=== PATIENT | male | born 1995 | race Caucasian/White ===

== ENCOUNTER 2016-08-29 16:28 | Emergency (ER) | payer BC ==
[2016-08-29 16:44] VITALS: RESP 18
[2016-08-29] MEDS ORDERED: SODIUM CHLORIDE 0.9% 1,000 ML IV STA (16:56)
[2016-08-29] MEDS ORDERED: ESOMEPRAZOLE 20 MG in SODIUM CHLORIDE 0.9% 50 ML IVPB STA (16:56)
[2016-08-29 17:35] VITALS: BP 146/83; PULSE 52; TEMP 99.3
[2016-08-29 17:43] LABS: Basophils % (A) 0 %; CH 31.4; CHCM 37.6; Eosinophils # (A) 0.3 k/uL (0-0.7); Eosinophils % (A) 5 %; HCT 36.5 % (39.0-53.0); HGB 13.5 gm/dL (13.0-17.5); Hyperchromasia Slight; Luc # (Auto) 0.14; Luc % (Auto) 2; Lymphocytes # (A) 1.7 k/uL (1.0-4.8); Lymphocytes % (A) 27 %; MCH 31.1 pg (25.0-35.0); MCHC 37.1 g/dL (31.0-37.0); MCV 83.9 fL (80.0-100.0); Mean Platelet Volume 7.5; Monocytes # (A) 0.3 k/uL (0-1.0); Monocytes % (A) 5 %; Neutrophils # (A) 3.9 k/uL (1.3-7.7); Neutrophils % (A) 61 %; RBC 4.36 m/uL (4.30-5.90); RDW 13.2 % (11.5-15.5); WBC 6.5 k/uL (4.0-11.0); WBC (Perox) 6.28
[2016-08-29 17:53] LABS: INR 1.1 (<1.2); Partial Thromboplastin Time 27.2 sec (22.0-30.0); Prothrombin Time 10.7 sec (9.0-12.0)
--- NOTE | 2016-08-29 18:00 | ED ---
GI Bleed HPI - General Chief complaint: GI Bleed Stated complaint: Rectal Bleeding Time Seen by Provider: 08/29/16 16:49 Source: patient, RN notes reviewed Mode of arrival: ambulatory Limitations: no limitations - History of Present Illness Initial comments: 21-year-old male presents emergency Department chief complaint of rectal bleeding. Patient states that he had a bowel movement today and which he had dark maroon to black stool and states that he also had some bright red blood. Patient states she has no rectal pain denies abdominal pain. Patient did state that he did consume large amount of alcohol this weekend Patient states she has no history of GERD or gastritis. He has no GI history. Patient states that he has no hematuria or dysuria. Denies taking ibuprofen on a regular basis. He states he takes occasionally. Patient states she's had no history of hemorrhoids. Patient offers no other complaints. Denies fever, chills, fatigue. - Related Data Home Medications Medication Instructions Recorded Confirmed Cetirizine HCl [Zyrtec] 10 mg PO DAILY PRN 08/29/16 08/29/16 diphenhydrAMINE HCL [Benadryl] 25 mg PO HS PRN 08/29/16 08/29/16 Previous Rx's Medication Instructions Recorded Omeprazole [PriLOSEC] 20 mg PO AC-BRKFST #14 cap 08/29/16 Allergies Allergy/AdvReac Type Severity Reaction Status Date / Time Penicillins Allergy Unknown Verified 08/29/16 16:49 Childhood Review of Systems ROS Statement: Those systems with pertinent positive or pertinent negative responses have been documented in the HPI. ROS Other: All systems not noted in ROS Statement are negative. Past Medical History Past Medical History: No Reported History History of Any Multi-Drug Resistant Organisms: None Reported Past Surgical History: Adenoidectomy, Ear Surgery, Tonsillectomy Past Psychological History: No Psychological Hx Reported Smoking Status: Light tobacco smoker Past Alcohol Use History: Occasional Past Drug Use History: None Reported General Exam Limitations: no limitations General appearance: alert, in no apparent distress Neck exam: Present: normal inspection, full ROM. Absent: tenderness, meningismus, lymphadenopathy Respiratory exam: Present: normal lung sounds bilaterally. Absent: respiratory distress, wheezes, rales, rhonchi, stridor Cardiovascular Exam: Present: regular rate, normal rhythm, normal heart sounds. Absent: systolic murmur, diastolic murmur, rubs, gallop, clicks GI/Abdominal exam: Present: soft, normal bowel sounds. Absent: distended, tenderness, guarding, rebound, rigid Rectal exam: Present: normal inspection, normal rectal tone, heme (+) stool, bloody stool. Absent: fecal impaction, hemorrhoids, mass, tenderness Back exam: Absent: CVA tenderness (R), CVA tenderness (L) Skin exam: Present: warm, dry, intact, normal color. Absent: rash Course Vital Signs 08/29/16 08/29/16 16:41 17:34 Temperature 98.7 F 99.3 F Pulse Rate 51 L 52 L Respiratory 18 18 Rate Blood Pressure 164/87 146/83 O2 Sat by Pulse 99 99 Oximetry Medical Decision Making - Medical Decision Making 21-year-old male present emergency Department chief complaint of bleeding rectally. Patient was likely has an internal hemorrhoid. Patient's stools more bright red been black. This less likely to be upper GI bleed the patient be started on some antacids. Patient will follow-up GI for possible colonoscopy if symptoms do not improve return parameters were discussed. - Lab Data Result diagrams: 08/29/16 17:34 Lab Results 08/29/16 08/29/16 08/29/16 Range/Units 17:34 17:34 17:34 WBC 6.5 (4.0-11.0) k/uL RBC 4.36 (4.30-5.90) m/uL Hgb 13.5 (13.0-17.5) gm/dL Hct 36.5 L (39.0-53.0) % MCV 83.9 (80.0-100.0) fL MCH 31.1 (25.0-35.0) pg MCHC 37.1 H (31.0-37.0) g/dL RDW 13.2 (11.5-15.5) % Plt Count 212 (150-450) k/uL Neutrophils % 61 % Lymphocytes % 27 % Monocytes % 5 % Eosinophils % 5 % Basophils % 0 % Neutrophils # 3.9 (1.3-7.7) k/uL Lymphocytes # 1.7 (1.0-4.8) k/uL Monocytes # 0.3 (0-1.0) k/uL Eosinophils # 0.3 (0-0.7) k/uL Basophils # 0.0 (0-0.2) k/uL Hyperchromasia Slight PT 10.7 (9.0-12.0) sec INR 1.1 (<1.2) APTT 27.2 (22.0-30.0) sec Stool Occult Blood Positive (Negative) Disposition Clinical Impression: Rectal bleeding Disposition: HOME SELF-CARE Condition: Stable Instructions: Gastrointestinal Bleeding (ED) Additional Instructions: Please return to the Emergency Department if symptoms worsen or any other concerns. Prescriptions: Omeprazole [PriLOSEC] 20 mg PO AC-BRKFST #14 cap Referrals: Raudel Phillip MD [Primary Care Provider] - 1-2 days Time of Disposition: 17:59
[2016-08-29 18:02] LABS: ALT 34 U/L (21-72); AST 41 U/L (17-59); Alkaline Phosphatase 104 U/L (38-126); Anion Gap 10 mmol/L; Blood Urea Nitrogen 17 mg/dL (9-20); Calcium 9.3 mg/dL (8.4-10.2); Carbon Dioxide 22 mmol/L (22-30); Chloride 108 mmol/L (98-107); Glucose 98 mg/dL (74-99); Magnesium 1.7 mg/dL (1.6-2.3); Non-African American GFR(MDRD) >60 (>60 ml/min/1.73 sqM); Sodium 140 mmol/L (137-145); Total Bilirubin 0.9 mg/dL (0.2-1.3); Total Protein 6.9 g/dL (6.3-8.2)
== END 2016-08-29 18:14 | disposition home or self-care (01) ==
LOC: EC 16:28
DX: K62.5 Hemorrhage of anus and rectum (principal); Z88.0 Allergy status to penicillin; F17.200 Nicotine dependence, unspecified, uncomplicated
CPT/HCPCS: 36415; 80053; 82272; 83735; 85025; 85610; 85730; 96365; 99284

== ENCOUNTER 2018-03-07 12:42 | Observation (INO) | payer OTHER ==
--- NOTE | 2018-03-07 12:22 | US ---
EXAMINATION TYPE: US abdomen APPY DATE OF EXAM: 03/07/2018 COMPARISON: NONE CLINICAL HISTORY: 22-year-old female R10.31 Rt lower quadrant pain. RLQ Pain, patient states having s light fever yesterday TECHNIQUE: Multiple sonographic images of the right lower quadrant with graded compression. FINDINGS: APPENDIX Is structure which may represent the appendix is seen: AP Diameter (normal < 6mm): 6.7 mm Measured outer wall to outer wall. Is the appendix seen in its entirety from the proximal cecum to distal end: No. Noncompressible nonpe ristalsing tubular structure seen in the RLQ. Is this structure compressible: no Does this structure appear hypervascular: no Is an appendicolith present: no Is there inflammatory changes or free fluid present: Small amount of free fluid visualized just james cent IMPRESSION: Findings are somewhat suspicious but remain equivocal by ultrasound. A structure which may represent the appendix is seen and has some adjacent free fluid but shows no inflammatory hyperemia and is only borderline in thickness. The structure could also not be seen in its entirety. The presence of some adjacent free fluid and noncompressibility are suspicious features. Further clinical correlation will be needed.
[2018-03-07] MEDS ORDERED: SODIUM CHLORIDE 0.9% 1,000 ML IV STA (12:54)
--- NOTE | 2018-03-07 13:12 | ED ---
Abdominal Pain HPI - General Chief Complaint: Abdominal Pain Stated Complaint: US sent-appendicitis Source: patient Mode of arrival: ambulatory Limitations: no limitations - History of Present Illness Initial Comments: 22-year-old male with no past medical history presents today as sent by primary care provider for rule out of appendicitis. Patient states that yesterday he began experiencing right lower quadrant abdominal pain as well as some mild diarrhea. He states this has since subsided however the right lower quadrant pain remained. Patient denies any vomiting, hematochezia, melena, testicular pain, testicular swelling, groin pain, abdominal injury. He did state he had a low-grade fever yesterday evening around 100 Fahrenheit however this was resolved with ibuprofen. Patient states he presented to his primary care provider for evaluation where an ultrasound was ordered, results were inconclusive and patient was sent for further evaluation at the emergency department. Patient's labs that were drawn as primary care provider are pending. Patient states that the pain does not radiate however increases with deep breath and is sore with ambulation. Patient states 4/10 sharp. Remainder of ROS negative, patient denies any recent shortness of breath, chest pain, back pain, nausea or vomiting, numbness or tingling, dysuria or hematuria, headaches or visual changes, or any other complaints. Upon arrival patient's vital signs within acceptable limits. - Related Data Home Medications Medication Instructions Recorded Confirmed Ibuprofen [Motrin Ib] 600 mg PO Q6H PRN 03/07/18 03/07/18 Allergies Allergy/AdvReac Type Severity Reaction Status Date / Time No Known Allergies Allergy Verified 03/07/18 12:57 Review of Systems ROS Statement: Those systems with pertinent positive or pertinent negative responses have been documented in the HPI. ROS Other: All systems not noted in ROS Statement are negative. Past Medical History Past Medical History: No Reported History History of Any Multi-Drug Resistant Organisms: None Reported Past Surgical History: Adenoidectomy, Ear Surgery, Tonsillectomy Past Psychological History: No Psychological Hx Reported Smoking Status: Light tobacco smoker Past Alcohol Use History: Occasional Past Drug Use History: None Reported General Exam - General Exam Comments Initial Comments: General: The patient is awake and alert, in no distress, and does not appear acutely ill. Eye: +3 mm pupils are equal, round and reactive to light, extra-ocular movements are intact. No nystagmus. There is normal conjunctiva bilaterally. No signs of icterus. Ears, nose, mouth and throat: There are moist mucous membranes and no oral lesions. Neck: The neck is supple, there is no tenderness or JVD. Cardiovascular: There is a regular rate and rhythm. No murmur, rub or gallop is appreciated. Respiratory: Lungs are clear to auscultation, respirations are non-labored, breath sounds are equal. No wheezes, stridor, rales, or rhonchi. Gastrointestinal: No noted diaphoresis, jaundice, pallor, protecting postures or squirming. Symmetrical pigmentation of abdomen without signs of inflammation, [scars], or striae. Umbilicus mildline, inverted without swelling. No dilated veins. Abdomen contour scaphoid, no noted abdominal distention. No visible masses. No peristalsis, aortic pulsations, or ventral hernia. Bowel sounds audible in all 4 quadrants, unremarkable. Tenderness to deep and light palpation of the RLQ Liver edge, not palpable. Spleen edge, right and left kidney not palpable. Superior bladder margin non-tender. Special Testing: Negative Clyman, Rovsing, Ramses, cutaneous hyperesthesia. Negative Heel Jar test. No CVA tenderness. Digital rectal exam deferred. Negative york turners or cullens sign. Musculoskeletal: Normal ROM, no tenderness. Strength 5/5. Sensation intact. Pulses equal bilaterally 2+. Neurological: A&O x 3. CN II-XII intact, There are no obvious motor or sensory deficits. Coordination appears grossly intact. Speech is normal. Skin: Skin is warm and dry and no rashes or lesions are noted. Psychiatric: Cooperative, appropriate mood & affect, normal judgment. Limitations: no limitations Course Vital Signs 03/07/18 03/07/18 12:50 14:52 Temperature 97.8 F 98.4 F Pulse Rate 75 55 L Respiratory 16 18 Rate Blood Pressure 147/85 144/83 O2 Sat by Pulse 100 99 Oximetry Medical Decision Making - Medical Decision Making 22-year-old male with no past medical history presenting for right lower quadrant pain patient had inconclusive outpatient ultrasound. Patient has right lower quadrant tenderness on exam. Laboratory studies revealed no acute abnormalities, no leukocytosis. CT with contrast revealed findings concerning for mild acute appendicitis. Patient started on Zosyn, surgery consult. Dr. Hernandes accepted admission. Patient ordered nothing by mouth itching started on maintenance fluids. Findings discussed with parents, patient transferred to the floor in stable condition discussed with attending for Dr. Lund who is a patient in person. He spoke with the admitting provider. Agreed to impression and plan. - Lab Data Result diagrams: 03/07/18 13:20 03/07/18 13:20 Lab Results 03/07/18 03/07/18 03/07/18 Range/Units 13:20 13:20 13:20 WBC 8.0 (3.8-10.6) k/uL RBC 5.52 (4.30-5.90) m/uL Hgb 16.6 (13.0-17.5) gm/dL Hct 47.6 (39.0-53.0) % MCV 86.2 (80.0-100.0) fL MCH 30.1 (25.0-35.0) pg MCHC 34.9 (31.0-37.0) g/dL RDW 12.8 (11.5-15.5) % Plt Count 230 (150-450) k/uL Neutrophils % 57 % Lymphocytes % 30 % Monocytes % 6 % Eosinophils % 4 % Basophils % 1 % Neutrophils # 4.6 (1.3-7.7) k/uL Lymphocytes # 2.4 (1.0-4.8) k/uL Monocytes # 0.5 (0-1.0) k/uL Eosinophils # 0.3 (0-0.7) k/uL Basophils # 0.0 (0-0.2) k/uL Sodium 141 (137-145) mmol/L Potassium 4.5 (3.5-5.1) mmol/L Chloride 105 (98-107) mmol/L Carbon Dioxide 28 (22-30) mmol/L Anion Gap 8 mmol/L BUN 16 (9-20) mg/dL Creatinine 0.95 (0.66-1.25) mg/dL Est GFR (CKD-EPI)AfAm >90 (>60 ml/min/1.73 sqM) Est GFR (CKD-EPI)NonAf >90 (>60 ml/min/1.73 sqM) Glucose 90 (74-99) mg/dL Calcium 9.9 (8.4-10.2) mg/dL Total Bilirubin 1.1 (0.2-1.3) mg/dL AST 28 (17-59) U/L ALT 24 (21-72) U/L Alkaline Phosphatase 93 (38-126) U/L Total Protein 8.4 H (6.3-8.2) g/dL Albumin 5.1 H (3.5-5.0) g/dL Amylase 77 (30-110) U/L Lipase 87 (23-300) U/L Urine Color Yellow Urine Appearance Clear (Clear) Urine pH 6.0 (5.0-8.0) Ur Specific [place] 1.021 (1.001-1.035) Urine Protein Trace H (Negative) Urine Glucose (UA) Negative (Negative) Urine Ketones Negative (Negative) Urine Blood Negative (Negative) Urine Nitrite Negative (Negative) Urine Bilirubin Negative (Negative) Urine Urobilinogen <2.0 (<2.0) mg/dL Ur Leukocyte Esterase Moderate H (Negative) Urine RBC 6 H (0-5) /hpf Urine WBC 32 H (0-5) /hpf Urine Mucus Few H (None) /hpf Disposition Clinical Impression: Acute appendicitis Disposition: ADMITTED IP TO THIS [facility] Condition: Stable Is patient prescribed a controlled substance at d/c from ED?: No Time of Disposition: 14:45 Decision to Admit Reason: Admit from EC Decision Date: 03/07/18 Decision Time: 14:45
[2018-03-07 13:52] LABS: ALT 24 U/L (21-72); AST 28 U/L (17-59); Albumin 5.1 g/dL (3.5-5.0); Alkaline Phosphatase 93 U/L (38-126); Amylase 77 U/L (30-110); Anion Gap 8 mmol/L; Blood Urea Nitrogen 16 mg/dL (9-20); Calcium 9.9 mg/dL (8.4-10.2); Carbon Dioxide 28 mmol/L (22-30); Chloride 105 mmol/L (98-107); Glucose 90 mg/dL (74-99); Lipase 87 U/L (23-300); Potassium 4.5 mmol/L (3.5-5.1); Sodium 141 mmol/L (137-145); Total Bilirubin 1.1 mg/dL (0.2-1.3); Total Protein 8.4 g/dL (6.3-8.2)
[2018-03-07 13:53] LABS: Appearance,Urine Clear (Clear); Bilirubin,Urine Negative (Negative); Blood,Urine Negative (Negative); Color,Urine Yellow; Glucose,Urine (UA) Negative (Negative); Ketones,Urine Negative (Negative); Leukocyte Esterase,Urine Moderate (Negative); Mucus,Urine Few /hpf; Nitrite,Urine Negative (Negative); Protein,Urine Trace (Negative); RBC,Urine 6 /hpf (0-5); Specific Gravity,Urine 1.021 (1.001-1.035); Urobilinogen,Urine <2.0 mg/dL (<2.0); WBC,Urine 32 /hpf (0-5)
[2018-03-07 14:06] LABS: Basophils % (A) 1 %; Eosinophils # (A) 0.3 k/uL (0-0.7); Eosinophils % (A) 4 %; HCT 47.6 % (39.0-53.0); HGB 16.6 gm/dL (13.0-17.5); Lymphocytes # (A) 2.4 k/uL (1.0-4.8); Lymphocytes % (A) 30 %; MCH 30.1 pg (25.0-35.0); MCHC 34.9 g/dL (31.0-37.0); MCV 86.2 fL (80.0-100.0); Mean Platelet Volume 6.8; Monocytes # (A) 0.5 k/uL (0-1.0); Monocytes % (A) 6 %; Neutrophils # (A) 4.6 k/uL (1.3-7.7); Neutrophils % (A) 57 %; Platelet Count 230 k/uL (150-450); RBC 5.52 m/uL (4.30-5.90); RDW 12.8 % (11.5-15.5)
--- NOTE | 2018-03-07 14:06 | CT ---
EXAMINATION TYPE: CT abdomen pelvis w con DATE OF EXAM: 03/07/2018 COMPARISON: Correlation ultrasound same day HISTORY: 22-year-old male RLQ pain TECHNIQUE: Contiguous axial scanning of the abdomen and pelvis following administration of 100 ml Iso awa 300 IV contrast. Delayed images through the kidneys and coronal/sagittal reconstructions perform ed. CT DLP: 627.2 mGycm Automated exposure control for dose reduction was used. FINDINGS: Heart normal size without pericardial effusion. Lung bases clear without pleural effusion. No focal liver lesion or biliary ductal dilatation. Portal venous system is patent. The adrenal glands, kidneys, pancreas, and spleen appear within normal limits. Some scattered prominent mesenteric lymph nodes measure up to 1 cm. Refer to coronal image 33. The ap pendix is visualized and is mildly thickened at 8.8 mm. It appears hyperemic with minimal surrounding fat stranding. Mild stool wording. Bladder not distended. Prostate gland measures 3.7 cm wide. Qnby-cv-[id number] pelvic free fluid. No pe lvic lymphadenopathy seen. Bones: Bilateral L5 pars defects with grade 1 anterolisthesis at L5-S1 with bulging disc. Additional posterior disc bulge at L4-L5. No osseous destructive process. IMPRESSION: 1. THE APPENDIX IS MILDLY THICKENED AT 8.8 MM (NORMAL <6 CM) AND APPEARS MILDLY INFLAMED. FINDINGS BEASLEY SPICIOUS FOR MILD ACUTE APPENDICITIS. NO ABSCESS OR FREE AIR. 2. HOWEVER, IN ADDITION, NONENLARGED AND MILDLY ENLARGED MESENTERIC LYMPH NODES ARE PRESENT MEASURING UP TO 1 CM. THERE COULD BE A CONCURRENT MESENTERIC ADENITIS. 3. MILD TO MODERATE PELVIC FREE FLUID. 4. 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
[2018-03-07] MEDS ORDERED: PIPERACILLIN-TAZOBACTAM 3.375 GM in SODIUM CHLORIDE 0.9% 100 ML IVPB STA (14:38)
[2018-03-07] MEDS ORDERED: MORPHINE SULFATE 4 MG/ML SYRINGE IV PRN (14:42)
[2018-03-07] MEDS ORDERED: NALOXONE 0.4 MG/ML 1 ML VIAL IV PRN ×2 (14:42→16:07)
[2018-03-07] MEDS: SODIUM CHLORIDE 0.9% 1,000 ML IV SCH (14:56)
[2018-03-07] MEDS ORDERED: IV FLUID CONTINUATION 1,000 ML IV ONE (15:15)
--- NOTE | 2018-03-07 15:21 | P.GSHP ---
History of Present Illness H&P Date: 03/07/18 Chief Complaint: Right lower quadrant pain Is a 22-year-old male who's had complaints of right lower quadrant pain. His recent CAT scan shows evidence of acute appendicitis. Patient is hospital for treatment of appendicitis. Past Medical History Past Medical History: No Reported History History of Any Multi-Drug Resistant Organisms: None Reported Past Surgical History: Adenoidectomy, Ear Surgery, Tonsillectomy Past Psychological History: No Psychological Hx Reported Smoking Status: Light tobacco smoker Past Alcohol Use History: Occasional Past Drug Use History: None Reported Medications and Allergies Home Medications Medication Instructions Recorded Confirmed Type Ibuprofen [Motrin Ib] 600 mg PO Q6H PRN 03/07/18 03/07/18 History Allergies Allergy/AdvReac Type Severity Reaction Status Date / Time No Known Allergies Allergy Verified 03/07/18 12:57 Surgical - Exam Vital Signs Temp Pulse Resp BP Pulse Ox 97.8 F 75 16 147/85 100 03/07/18 12:50 03/07/18 12:50 03/07/18 12:50 03/07/18 12:50 03/07/18 12:50 - General well developed, well nourished, no distress - Eyes PERRL - ENT normal pinna - Neck no masses - Respiratory normal expansion - Cardiovascular Rhythm: regular - Abdomen Mild right lower quadrant pain Abdomen: soft Results - Labs 03/07/18 13:20 03/07/18 13:20 Abnormal Lab Results - Last 24 Hours (Table) 03/07/18 03/07/18 Range/Units 13:20 13:20 Total Protein 8.4 H (6.3-8.2) g/dL Albumin 5.1 H (3.5-5.0) g/dL Urine Protein Trace H (Negative) Ur Leukocyte Esterase Moderate H (Negative) Urine RBC 6 H (0-5) /hpf Urine WBC 32 H (0-5) /hpf Urine Mucus Few H (None) /hpf Diabetes panel 03/07/18 Range/Units 13:20 Sodium 141 (137-145) mmol/L Potassium 4.5 (3.5-5.1) mmol/L Chloride 105 (98-107) mmol/L Carbon Dioxide 28 (22-30) mmol/L BUN 16 (9-20) mg/dL Creatinine 0.95 (0.66-1.25) mg/dL Glucose 90 (74-99) mg/dL Calcium 9.9 (8.4-10.2) mg/dL AST 28 (17-59) U/L ALT 24 (21-72) U/L Alkaline Phosphatase 93 (38-126) U/L Total Protein 8.4 H (6.3-8.2) g/dL Albumin 5.1 H (3.5-5.0) g/dL Calcium panel 03/07/18 Range/Units 13:20 Calcium 9.9 (8.4-10.2) mg/dL Albumin 5.1 H (3.5-5.0) g/dL Pituitary panel 03/07/18 Range/Units 13:20 Sodium 141 (137-145) mmol/L Potassium 4.5 (3.5-5.1) mmol/L Chloride 105 (98-107) mmol/L Carbon Dioxide 28 (22-30) mmol/L BUN 16 (9-20) mg/dL Creatinine 0.95 (0.66-1.25) mg/dL Glucose 90 (74-99) mg/dL Calcium 9.9 (8.4-10.2) mg/dL Adrenal panel 03/07/18 Range/Units 13:20 Sodium 141 (137-145) mmol/L Potassium 4.5 (3.5-5.1) mmol/L Chloride 105 (98-107) mmol/L Carbon Dioxide 28 (22-30) mmol/L BUN 16 (9-20) mg/dL Creatinine 0.95 (0.66-1.25) mg/dL Glucose 90 (74-99) mg/dL Calcium 9.9 (8.4-10.2) mg/dL Total Bilirubin 1.1 (0.2-1.3) mg/dL AST 28 (17-59) U/L ALT 24 (21-72) U/L Alkaline Phosphatase 93 (38-126) U/L Total Protein 8.4 H (6.3-8.2) g/dL Albumin 5.1 H (3.5-5.0) g/dL Assessment and Plan Assessment: Right lower quadrant pain Acute appendicitis We'll perform laparoscopic appendectomy.
[2018-03-07] MEDS ORDERED: DEXAMETHASONE SOD PHOS (MDV) 100 MG/10 ML VIAL IVP ONE (15:30)
[2018-03-07] MEDS ORDERED: ONDANSETRON 4 MG/2 ML VIAL IVP ONE (15:30)
[2018-03-07] MEDS ORDERED: fentaNYL (PF) 50 MCG/ML 2 ML AMP ONE (15:35)
[2018-03-07] MEDS ORDERED: PROPOFOL 10 MG/ML 20 ML VIAL IV ONE (15:35)
[2018-03-07] MEDS ORDERED: MIDAZOLAM 2 MG/2 ML VIAL ONE (15:35)
[2018-03-07] MEDS ORDERED: NEOSTIGMINE 1 MG/ML 10 ML VIAL ONE (15:35)
[2018-03-07] MEDS ORDERED: ROCURONIUM BROMIDE 10 MG/ML 10 ML VIAL IV ONE (15:35)
[2018-03-07] MEDS ORDERED: LIDOCAINE 1% INJ 10MG/ML (20 ML MDV) ONE (15:35)
[2018-03-07] MEDS ORDERED: KETOROLAC 30 MG/ML 1 ML VIAL ONE (15:35)
[2018-03-07] MEDS ORDERED: GLYCOPYRROLATE 0.2 MG/ML 2 ML VIAL ONE (15:35)
[2018-03-07] MEDS ORDERED: HYDROmorphone (PF) 1 MG/ML ONE (15:35)
[2018-03-07] MEDS ORDERED: BUPIVACAIN-EPI 0.5%-1:200,000 30 ML VIAL SQ ONE (15:49)
--- NOTE | 2018-03-07 16:06 | P.OP ---
Date of Procedure: 03/07/18 Preoperative Diagnosis: Acute appendicitis Postoperative Diagnosis: Acute appendicitis Procedure(s) Performed: Laparoscopic appendectomy Anesthesia: SAMANTHA Surgeon: Blake Quiles Estimated Blood Loss (ml): 5 Pathology: other (Appendix) Condition: stable Disposition: PACU Description of Procedure: The patient's placed on the operating table in the supine position. The patient received general anesthesia. The abdomen was prepped and draped in the usual sterile fashion. The skin was anesthetized 1% local Xylocaine at the trocar sites. Using an 11 blade the skin was incised at the umbilicus. The umbilicus was grasped with a [place] clamp and then a Veress needle was placed into the peritoneal cavity. Position of the Veress needle was confirmed with positive drop test. After adequate insufflation a 5 mm trocar was placed into the peritoneal cavity. The abdomen was further insufflated. And then the laparoscope was placed in the peritoneal cavity. Next a 5 mm trocar was placed in the midline suprapubic position. And then a 10 mm trocar was placed in the midline epigastric position. The patient was rotated with the right side up and in Trendelenburg. The appendix was visualized. The appendix appeared to be inflamed. The appendix was grasped and then using the Harmonic scissors the mesoappendix was divided. A PDS Endoloop was then placed around the base of the appendix. And then the appendix was divided using Harmonic scissors. The appendix was placed into an Endo Catch and brought out through the 10 mm trocar site. The abdomen was irrigated. There is no bleeding seen. The trochars withdrawn. The skin was closed interrupted 3-0 Monocryl suture. Dermabond dressing was applied. Patient was sent to recovery room in stable condition.
[2018-03-07] MEDS ORDERED: ONDANSETRON 4 MG/2 ML VIAL IVP PRN (16:07)
[2018-03-07] MEDS ORDERED: LACTATED RINGERS 1,000 ML IV ONE ×2 (16:07→17:15)
[2018-03-07 17:44] VITALS: BMI 24.3
[2018-03-07] MEDS: KETOROLAC 30 MG/ML 1 ML VIAL IVP SCH ×2 (17:46→22:58)
[2018-03-07] MEDS ORDERED: INFLUENZA VACCINE (6 MOS+) 60 MCG/0.5 ML SYRINGE IM ONE (17:46)
[2018-03-07 19:40] VITALS: RESP 15
[2018-03-08] MEDS: HYDROcodone/APAP 5-325MG 1 EACH TAB PO PRN ×2 (01:42→08:27)
[2018-03-08] MEDS: KETOROLAC 30 MG/ML 1 ML VIAL IVP SCH ×2 (05:18→11:20)
[2018-03-08 07:45] VITALS: BP 110/59; PULSE 95; TEMP 98
[2018-03-08] MEDS: SODIUM CHLORIDE 0.9% 1,000 ML IV SCH (08:28)
[2018-03-08] MEDS ORDERED: ENOXAPARIN 40 MG/0.4 ML SYRINGE SQ SCH (09:00)
--- NOTE | 2018-03-08 11:15 | P.DS ---
Providers Date of admission: 03/07/18 14:45 Expected date of discharge: 03/08/18 Attending physician: Blake Quiles Consults: 03/07/18 16:07 Consult Physician Routine Consulting Provider: Anamika Bee Consult Reason/Comments: medical manage Do you want consulting provider notified?: Yes Primary care physician: Stated None Hospital Course: 22-year-old male who presented to emergency room with a chief complaint of abdominal pain. The patient was found to have acute appendicitis. He underwent laparoscopic appendectomy on 03/07/2018. The patient is doing well without any immediate postoperative complications. His pain is tolerable. He is tolerating regular diet. Denies nausea or vomiting. He has been out of bed and ambulating. His vital signs are stable. He is stable for discharge home today. Please see EMR for further hospital details. DISCHARGE DIAGNOSIS: 1. Abdominal pain 2. Acute appendicitis, status post laparoscopic appendectomy Nurse practitioner note has been reviewed by physician. Signing provider agrees with the documented findings, assessment, and plan of care. Patient Condition at Discharge: Stable Plan - Discharge Summary Discharge Rx Participant: No New Discharge Prescriptions: New HYDROcodone/APAP 5-325MG [[place] 5] 1 each PO Q4HR PRN #18 tab PRN Reason: Pain Docusate [Colace] 100 mg PO BID #30 capsule No Action Ibuprofen [Motrin Ib] 600 mg PO Q6H PRN PRN Reason: Pain Discharge Medication List Ibuprofen [Motrin Ib] 600 mg PO Q6H PRN 03/07/18 [History] Docusate [Colace] 100 mg PO BID #30 capsule 03/08/18 [Rx] HYDROcodone/APAP 5-325MG [[place] 5] 1 each PO Q4HR PRN #18 tab 03/08/18 [Rx] Follow up Appointment(s)/Referral(s): None,Stated [Primary Care Provider] - 1-2 days Blake Quiles MD [STAFF PHYSICIAN] - 1 Week Activity/Diet/Wound Care/Special Instructions: No driving while taking [place] No lifting over 10 pounds You may shower. No soaking or tub baths Very light activity until you are reevaluated at your follow up appointment with your surgeon Discharge Disposition: HOME SELF-CARE
--- NOTE | 2018-03-08 14:57 | P.CONS ---
History of Present Illness - Reason for Consult Perioperative complication management - History of Present Illness 22-year-old pleasant gentleman admitted with the right lower quadrant abdominal pain found to have acute appendicitis and successfully underwent surgery clinically doing well did pass gas did not move his bowel get patient is eating tolerating diet well and patient is being discharged today patient doesn't have any major medical problems. She denied any fever chills nausea vomiting Review of Systems REVIEW OF SYSTEMS: CONSTITUTIONAL: No fever, no malaise, no fatigue. HEENT: No recent visual problems or hearing problems. Denied any sore throat. CARDIOVASCULAR: No chest pain, orthopnea, PND, no palpitations, no syncope. PULMONARY: No shortness of breath, no cough, no hemoptysis. GASTROINTESTINAL: No diarrhea, no nausea, no vomiting, NEUROLOGICAL: No headaches, no weakness, no numbness. HEMATOLOGICAL: Denies any bleeding or petechiae. GENITOURINARY: Denies any burning micturition, frequency, or urgency. MUSCULOSKELETAL/RHEUMATOLOGICAL: Denies any joint pain, swelling, or any muscle pain. ENDOCRINE: Denies any polyuria or polydipsia. The rest of the 14-point review of systems is negative. Past Medical History Past Medical History: No Reported History History of Any Multi-Drug Resistant Organisms: None Reported Past Surgical History: Adenoidectomy, Ear Surgery, Tonsillectomy Past Psychological History: No Psychological Hx Reported Smoking Status: Light tobacco smoker Past Alcohol Use History: Occasional Past Drug Use History: None Reported Medications and Allergies Home Medications Medication Instructions Recorded Confirmed Type Ibuprofen [Motrin Ib] 600 mg PO Q6H PRN 03/07/18 03/07/18 History Docusate [Colace] 100 mg PO BID #30 capsule 03/08/18 Rx HYDROcodone/APAP 5-325MG [[place] 5] 1 each PO Q4HR PRN #18 tab 03/08/18 Rx Allergies Allergy/AdvReac Type Severity Reaction Status Date / Time No Known Allergies Allergy Verified 03/07/18 12:57 Physical Exam Vitals: Vital Signs Temp Pulse Resp BP BP Pulse Ox 03/08/18 07:21 98.0 F 95 110/59 94 L 03/08/18 04:00 98.7 F 72 15 126/70 99 03/08/18 03:19 15 03/08/18 00:00 15 03/07/18 23:48 98.7 F 99 15 126/55 99 03/07/18 20:00 15 03/07/18 19:38 97.8 F 53 L 15 131/65 98 03/07/18 18:45 50 L 129/60 98 03/07/18 18:15 52 L 141/70 100 03/07/18 18:00 51 L 133/83 99 03/07/18 17:45 53 L 137/70 100 03/07/18 17:30 97.9 F 48 L 16 135/66 96 03/07/18 17:02 49 L 16 140/78 99 03/07/18 16:47 43 L 16 144/70 98 03/07/18 16:32 41 L 16 141/67 99 03/07/18 16:17 97 F L 60 16 142/66 100 03/07/18 16:00 48 L 16 03/07/18 15:26 97.2 F L 55 L 16 157/56 100 Intake and Output 03/07/18 03/08/18 03/08/18 22:59 06:59 14:59 Intake Total 900 Output Total 5 Balance 895 Intake: IV 900 Output: Estimated Blood Loss 5 Other: Voiding Method Toilet Toilet # Voids 2 2 2 PHYSICAL EXAMINATION: GENERAL: The patient is alert and oriented x3, not in any acute distress. Well developed, well nourished. HEENT: Pupils are round and equally reacting to light. EOMI. No scleral icterus. No conjunctival pallor. Normocephalic, atraumatic. No pharyngeal erythema. No thyromegaly. CARDIOVASCULAR: S1 and S2 present. No murmurs, rubs, or gallops. PULMONARY: Chest is clear to auscultation, no wheezing or crackles. ABDOMEN: Soft, nontender, surgical site areas are clean and does have good bowel sounds MUSCULOSKELETAL: No joint swelling or deformity. EXTREMITIES: No cyanosis, clubbing, or pedal edema. NEUROLOGICAL: Gross neurological examination did not reveal any focal deficits. SKIN: No rashes. Results CBC & Chem 7: 03/07/18 13:20 03/07/18 13:20 Assessment and Plan Plan: -Acute appendicitis, status post appendectomy, patient is eating well pain is significantly well-controlled patient is okay to be discharged from medicine perspective. -Nicotine use: Counseling was provided Patient will follow-up with his primary get patient in 3-7 days
== END 2018-03-08 12:30 | disposition home or self-care (01) ==
LOC: EC 12:42 → EDSTATUS 14:20 → 1SOBS 14:45
PROVIDERS: ADMIT Surgery; ATTEND Surgery
DX: R10.31 Right lower quadrant pain (principal); K35.80 Unspecified acute appendicitis; F17.200 Nicotine dependence, unspecified, uncomplicated; Z23 Encounter for immunization
CPT/HCPCS: 44970; 99285; 36415; 88304; 80053; 82150; 83690; 85025; 81001; 76705; 74177; 90686; G0378 ×2; G0008; J2543; J2250; J2710; J2405; J2001; J1650; J3010; J1885 ×2; J1170; J1100; J2704; Q9967

== ENCOUNTER → 2019-11-04 | Outpatient (CLI) | payer BC ==
[2019-11-04 15:24] LABS: Basophils % (A) 1 %; Eosinophils # (A) 0.6 k/uL (0-0.7); Eosinophils % (A) 8 %; HCT 44.1 % (39.0-53.0); Lymphocytes # (A) 2.7 k/uL (1.0-4.8); Lymphocytes % (A) 35 %; MCH 28.4 pg (25.0-35.0); MCV 83.6 fL (80.0-100.0); Mean Platelet Volume 7.3; Monocytes # (A) 0.4 k/uL (0-1.0); Monocytes % (A) 5 %; Neutrophils # (A) 3.9 k/uL (1.3-7.7); Neutrophils % (A) 50 %; Platelet Count 255 k/uL (150-450); RBC 5.28 m/uL (4.30-5.90); RDW 12.4 % (11.5-15.5); WBC 7.7 k/uL (3.8-10.6)
[2019-11-04 18:52] LABS: African American GFR (CKD) 122.4 (60.0-200.0); Albumin/Globulin Ratio 2.78 (1.60-3.17); Anion Gap 8.7 mmol/L (4.00-12.00); Calcium 9.7 mg/dL (8.7-10.3); Carbon Dioxide 28.3 mmol/L (21.6-31.8); Globulin 1.8 g/dL (1.6-3.3); Non-African American GFR(CKD) 105.6 (60.0-200.0); Potassium 4.5 mmol/L (3.5-5.5); Total Bilirubin 0.8 mg/dL (0.2-1.2); Total Protein 6.8 g/dL (6.2-8.2)
== END | disposition home or self-care (01) ==
LOC: LABWHC1 14:22
PROVIDERS: ATTEND Nurse Practitioner Family
DX: K21.9 Gastro-esophageal reflux disease without esophagitis (principal); R07.9 Chest pain, unspecified
CPT/HCPCS: 36415; 80053; 82550; 84484; 85025

== ENCOUNTER 2019-11-24 00:10 | Emergency (ER) | payer BC ==
[2019-11-24 00:20] VITALS: RESP 16
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
--- NOTE | 2019-11-24 01:18 | CT ---
EXAM: CT Head Without Intravenous Contrast CLINICAL HISTORY: Trauma, pain, evaluate for intracranial injury TECHNIQUE: Axial computed tomography images of the head/brain without intravenous contrast. CTDI is 45.285 mGy and DLP is 1133.5 mGy-cm. This CT exam was performed using one or more of the following dose reduction techniques: automated exposure control, adjustment of the mA and/or kV according to patient size, and/or use of iterative reconstruction technique. COMPARISON: none available FINDINGS: Brain: Unremarkable. No hemorrhage. No significant white matter disease. No edema. Ventricles: Unremarkable. No ventriculomegaly. Basilar cisterns are widely patent. Bones/joints: Unremarkable. No acute fracture. Bilateral temporomandibular joints are normal in appearance with no evidence of subluxation or dislocation. Soft tissues: Vertex scalp laceration and left parietal subcutaneous hematomas measuring up to 5mm in diameter (series 202 image 51). Sinuses: Unremarkable as visualized. No acute sinusitis. Mastoid air cells: Unremarkable as visualized. No mastoid effusion. IMPRESSION: 1. Vertex scalp laceration and left parietal subcutaneous hematomas with no underlying calvarial fracture. No skull base fracture. 2. No acute intracranial hemorrhage, herniation, or hydrocephalus. EXAM: CT Cervical Spine Without Intravenous Contrast CLINICAL HISTORY: Trauma, pain, evaluate for spine injury TECHNIQUE: Axial computed tomography images of the cervical spine without intravenous contrast. CTDI is 12.485 mGy and DLP is 368.5 mGy-cm. This CT exam was performed using one or more of the following dose reduction techniques: automated exposure control, adjustment of the mA and/or kV according to patient size, and/or use of iterative reconstruction technique. COMPARISON: none available FINDINGS: Vertebrae: No acute fracture. Vertebral body heights are maintained. No spondylolisthesis. Straightening of the cervical lordosis which may be due to muscle spasm or positional. Discs/spinal canal/neural foramina: No acute findings. No spinal canal stenosis. Soft tissues: Unremarkable. Visualized portions of the lung apices are clear. IMPRESSION: No CT evidence of acute traumatic injury to the cervical spine. No prevertebral edema.
[2019-11-24] MEDS ORDERED: DIPH,PERTUS(ACELL)TETVAC-LF 0.5 ML VIAL IM ONE (01:43)
[2019-11-24 02:07] VITALS: BP 126/82; PULSE 87; TEMP 97.7
== END 2019-11-24 02:04 | disposition home or self-care (01) ==
LOC: EC 00:10
DX: S01.01XA Laceration without foreign body of scalp, initial encounter (principal); Z23 Encounter for immunization; Z87.891 Personal history of nicotine dependence; X99.0XXA Assault by sharp glass, initial encounter; Y92.89 Other specified places as the place of occurrence of the external cause
CPT/HCPCS: 12002; 70450; 72125; 90471; 90715; 99283

== ENCOUNTER → 2020-09-23 | Outpatient (CLI) | payer BC ==
--- NOTE | 2020-09-24 08:25 | XR ---
EXAM TYPE: LUMBAR SPINE X RAY SERIES COMPARISON: NONE HISTORY: Pain TECHNIQUE: 4 views are submitted. FINDINGS: Alignment is anatomic. The pedicles are intact. The transverse processes are intact. There is spon dylolisthesis of L5 on S1 with grade 1 anterolisthesis IMPRESSION: 1. Bilateral spondylolysis L5. There is a grade 1 anterolisthesis..
--- NOTE | 2020-09-24 08:29 | XR ---
EXAMINATION TYPE: XR thoracic spine complete DATE OF EXAM: 09/23/2020 COMPARISON: NONE HISTORY: Pain TECHNIQUE: 3 views submitted FINDINGS: Alignment is anatomic. There is no compression deformities. Vertebral body height and disc interspa elias are maintained. IMPRESSION: 1. No acute abnormality.
== END | disposition home or self-care (01) ==
LOC: RADXRMAIN 15:43
PROVIDERS: ATTEND Nurse Practitioner Family
DX: M43.06 Spondylolysis, lumbar region (principal); M25.60 Stiffness of unspecified joint, not elsewhere classified; M54.42 Lumbago with sciatica, left side; M54.41 Lumbago with sciatica, right side
CPT/HCPCS: 72072; 72110